=== PATIENT | female | born 1950 | race American Indian/Alaskan Native ===

== ENCOUNTER 2017-08-10 12:55 | Day surgery (SDC) | payer MEDICARE, OTHER ==
[~2017-08-10 12:55] MED LIST: ANCEF/STERILE WATER 2 GM/20 ML IV NR; NACL 0.9% 1000 ML 1,000 ML IV SCH; PEPCID PO NR; VERSED IV NR
[2017-08-10] MEDS ORDERED: ZOFRAN IV PRN (13:39)
[2017-08-10] MEDS ORDERED: MORPHINE IV PRN (13:39)
[2017-08-10] MEDS ORDERED: PERCOCET 5/325 PO PRN (13:39)
--- NOTE | 2017-08-10 13:39 | Anesthesia Day of Surgery ---
Anesthesia Day of Surgery - Day of Surgery Patient Examined: Yes Patient is NPO: Yes
--- NOTE | 2017-08-10 13:39 | Anesthesia Consultation ---
Anesthesia Consult and Med Hx Date of service: 08/10/17 - Airway Anesthetic Teeth Evaluation: Good, Caps (bottom left molar) ROM Head & Neck: Adequate Mental/Hyoid Distance: Adequate Mallampati Class: Class II Intubation Access Assessment: Probably Good - Pulmonary Exam CTA: Yes - Cardiac Exam Cardiac Exam: RRR - Pre-Operative Health Status ASA Pre-Surgery Classification: ASA2 Proposed Anesthetic Plan: General - Pulmonary Hx Smoking: Yes (STOPPED X 13 YRS , 1 PPD FOR MANY YRS) Hx Sleep Apnea: No (JACQUELINE PRE SCREEN LOW RISK) - Cardiovascular System Hx Hypertension: Yes (ON MEDS X 3 MONTHS) - Hematic Hx Anemia: Yes (NOT RECENT) - Other Systems Hx Alcohol Use: Yes (BEER QD) Hx Cancer: No
[2017-08-10] MEDS ORDERED: DIPRIVAN 10 MG/ML IV ONE (14:48)
[2017-08-10] MEDS ORDERED: DILAUDID ONE (14:48)
[2017-08-10] MEDS ORDERED: XYLOCAINE MPF 2% ONE (14:49)
[2017-08-10] MEDS ORDERED: ZOFRAN ONE (15:21)
[2017-08-10] MEDS ORDERED: TORADOL ONE (15:21)
[2017-08-10] MEDS ORDERED: DECADRON ONE (15:21)
--- NOTE | 2017-08-10 16:06 | Short Stay Summary ---
Short Stay Documentation Date of service: 08/10/17 - History H&P: obtained from office - Allergies and Medications Current Medications: Allergies No Known Allergies Allergy (Verified 08/09/17 09:33) Home Medications Medication Instructions Recorded Confirmed Last Taken Type Acyclovir [Zovirax] 400 mg PO DAILY 08/09/17 08/10/17 08/09/17 09:00 History HYDROcodone/APAP 5-325 [[place] 1 each PO Q6HR PRN 08/09/17 08/09/17 Unknown History 5/325] Losartan [Cozaar] 50 mg PO QDAY 08/09/17 08/10/17 08/10/17 05:30 History Ondansetron [Zofran TAB] 4 mg PO Q8HR PRN 08/09/17 08/09/17 Unknown History traMADol [Ultram] 50 mg PO Q6HR PRN 08/09/17 08/10/17 08/08/17 09:00 History Active Medications Cefazolin Sodium (Ancef/Sterile Water 2 Gm/20 Ml) 2 gm IV PREOP NR Stop: 08/10/17 21:00 Sodium Chloride (Nacl 0.9% 1000 Ml) 1,000 mls @ 75 mls/hr IV DIRECT [facility]ORY Last Admin: 08/10/17 14:05 Dose: 75 mls/hr Midazolam HCl (Versed) 2 mg IV PREOP NR Stop: 08/10/17 23:59 Last Admin: 08/10/17 14:06 Dose: 2 mg Morphine Sulfate (Morphine) 2 mg IV Q10MIN PRN PRN Reason: Pain, Moderate (4-6) Ondansetron HCl (Zofran) 4 mg IV ONCE PRN PRN Reason: Nausea And Vomiting Oxycodone/Acetaminophen (Percocet 5/325) 1 tab PO ONCE PRN PRN Reason: Pain, Moderate (4-6) - Brief post op/procedure progress note Date of procedure: 08/10/17 Pre-op diagnosis: left renal stone Post-op diagnosis: same Procedure: ESWL - staged Anesthesia: GETA Surgeon: FLAVIO BURT Estimated blood loss: none Pathology: none Condition: stable - Hospital course Hospital course: norco,flomax,strainer,post op info - Disposition Condition at discharge: Stable Disposition: DC-01 TO HOME OR SELFCARE Short Stay Discharge Plan Follow up with: OSINUBI,MICHEAL, MD [Primary Care Provider] - 7 Days
[2017-08-10 18:04] VITALS: BP 140/87
--- NOTE | 2017-08-10 18:15 | Post Anesthesia Evaluation ---
- Post Anesthesia Evaluation Patient Participated: Yes Airway Patent: Yes Stable Respiratory Function: Yes Nausea/Vomiting: No Temp > 96.8F: Yes Pain Manageable: Yes Adequeate Hydration: Yes Anesthesia Complications: No Block Receding Appropriately: Not Applicable Patient on Ventilator: No
--- NOTE | 2017-08-10 18:35 | Operative Report ---
PREOPERATIVE DIAGNOSIS: Left renal stone, 14 mm. POSTOPERATIVE DIAGNOSIS: Left renal stone, 14 mm. PROCEDURE: Extracorporal shock wave lithotripsy. SURGEON: Talat Nguyen MD ANESTHESIA: General. ESTIMATED BLOOD LOSS: Minimal. FLUIDS: Crystalloid. COMPLICATIONS: No complications. INDICATIONS: This patient is a 66-year-old female seen in the office for seen in the office for left flank pain. CT abdomen and pelvis revealed a 14 mm left renal stone. She has a history of stones in the past. Discussed options, she agreed to proceed with surgical intervention. DESCRIPTION OF PROCEDURE: The patient was taken to the operative suite, placed in a supine position. After adequate general anesthesia, the stone was localized in 2 planes using fluoroscopy. Extracorporal shock wave lithotripsy was administered with maximum kV of 5 and 2500 shocks. Adequate fragmentation could be appreciated. The patient tolerated the procedure well. She was extubated and taken to recovery room in stable condition. She will go home on Flomax and [place] and follow up in the office. JOB# [id number] [facility]
== END 2017-08-10 12:56 | disposition home or self-care (01) ==
LOC: OR 12:55
PROVIDERS: ATTEND Urology
DX: N20.0 Calculus of kidney (principal); I10 Essential (primary) hypertension; Z87.891 Personal history of nicotine dependence; Z90.710 Acquired absence of both cervix and uterus; Z79.899 Other long term (current) drug therapy; Z98.51 Tubal ligation status; Z98.890 Other specified postprocedural states
CPT/HCPCS: 50590; J0690; J1100; J1170; J1885; J2250; J2405; J2704; J7030